=== PATIENT | male | born 1975 | race Caucasian/White ===

== ENCOUNTER 2017-02-10 02:30 | Emergency (ER) | payer OTHER ==
[~2017-02-10] VITALS: Ht 167.6 cm; Wt 78.0 kg
[~2017-02-10 02:30] MED LIST: ACIDOPHILUS1 CAP BC; AMARYL2 MG PO; CLEOCIN HCL300 MG PO; DOLOPHINE10 MG PO; DURAGESIC TOP; DURAGESIC25 MCG/HR; FENTANYL PATCH; METHADONE HCL10 M1 PO; METHADONE10 M1 PO; METHADONE5 MG
[2017-02-10 02:57] VITALS: BP 145/97
--- NOTE | 2017-02-10 03:06 | NUR ---
TO ER BED 6
--- NOTE | 2017-02-10 03:07 | NUR ---
BIB SPOUSE, PT STATES HE HAS ELECTRICAL CURRENTS RUNNING THROUGH HIM. PT STATES HE FEELS LIKE HIS HANDS ARE BURNING. MED HX: DIABETES DENIES N/V/D; SKIN IS PINK/WARM/DRY; AAOX4 WITH EVEN AND STEADY GAIT; LUNGS CLEAR BL; HR EVEN AND REGULAR; PT DENIES ANY FEVER, CP, SOB, OR COUGH AT THIS TIME; PATIENT STATES PAIN OF 0/10 AT THIS TIME; VSS; PATIENT POSITIONED FOR COMFORT; HOB ELEVATED; BEDRAILS UP X2; BED DOWN. ER MD MADE AWARE OF PT STATUS.
[2017-02-10 05:30] VITALS: BP 137/81
--- NOTE | 2017-02-10 05:30 | NUR ---
Patient discharged with v/s stable. Written and verbal after care instructions given and explained. Patient verbalized understanding. Ambulatory with steady gait. All questions addressed prior to discharge. Advised to follow up with PMD.
== END 2017-02-10 05:30 | disposition home or self-care (01) ==
LOC: MED 02:30
DX: F19.10 Other psychoactive substance abuse, uncomplicated (principal); R20.9 Unspecified disturbances of skin sensation; R36.9 Urethral discharge, unspecified; E11.9 Type 2 diabetes mellitus without complications; I10 Essential (primary) hypertension; Z88.8 Allergy status to other drugs, medicaments and biological substances